=== PATIENT | female | born 1955 | race Two or more races ===

== ENCOUNTER 2022-05-24 22:16 | Emergency (ER) | payer OTHER ==
[~2022-05-24] VITALS: Ht 61 cm; Wt 63.5 kg
--- NOTE | 2022-05-24 23:30 | NUR ---
PT BIB FAMILY WITH C/O OF RIGHT LOWER LEG SWELLING + PITTING EDEMA, RT INGUINAL PAIN, RT ABDL PAIN. PT IS AAO X 4, MALAY SPEAKING, AMBULATORY, IN NO ACUTE DISTRESS. SEEN AND EXAMINED BY DR DIMAOND. PT ATTACHED TO MONITOR AND PULSE OX. WILL CONT TO MONITOR.
[2022-05-25] MEDS ORDERED: ONDANSETRON HCL/PF 4 MG/2 ML VIAL IVP ONE
[2022-05-25] MEDS ORDERED: IV NS 0.9% 500 ML BAG IV ONE
[2022-05-25] MEDS ORDERED: MORPHINE SULFATE INJ 2 MG/ML DISP.SYRIN IV ONE
[2022-05-25] MEDS ORDERED: MORPHINE SULFATE INJ 4 MG/ML DISP.SYRIN ONE (00:29)
[2022-05-25] MEDS ORDERED: ONDANSETRON HCL/PF 4 MG/2 ML VIAL ONE (00:29)
[2022-05-25 00:31] LABS: BASOPHILS % (AUTO) 0.4 % (0.0-2.0); EOSINOPHILS % (AUTO) 2.8 % (0.0-6.0); HEMATOCRIT 34 % (33-45); HEMOGLOBIN 11.3 g/dL (11.5-14.8); LYMPHOCYTES # (AUTO) 1.8 K/uL (0.8-4.8); LYMPHOCYTES % (AUTO) 16.5 % (20.0-44.0); MEAN CORPUSCULAR HGB CONC 34 g/dl (31.0-36.0); MEAN CORPUSCULAR VOLUME 87 fL (82-100); MONOCYTES # (AUTO) 0.8 K/uL (0.1-1.30); MONOCYTES % (AUTO) 6.9 % (2.0-12.0); NEUTROPHILS # (AUTO) 8.1 K/uL (1.8-8.9); NEUTROPHILS % (AUTO) 73.4 % (43.0-81.0); PLATELET COUNT (AUTO) 350 K/uL (150-450); RED BLOOD CELL COUNT(AUTO) 3.89 MIL/uL (4.0-5.2)
--- NOTE | 2022-05-25 00:36 | NUR ---
PT TAKEN TO CT
--- NOTE | 2022-05-25 00:44 | NUR ---
Note dustinone in EDM - 05/25/22 at 0045 by MICHEAL PT BIB FAMILY WITH C/O OF RIGHT LOWER LEG SWELLING + PITTING EDEMA, RT INGUINAL PAIN, RT ABDL PAIN. PT IS AAO X 4, GERMAN SPEAKING, AMBULATORY, IN NO ACUTE DISTRESS. SEEN AND EXAMINED BY DR DIAMOND. PT ATTACHED TO MONITOR AND PULSE OX. WILL CONT TO MONITOR.
[2022-05-25 00:46] LABS: CALCIUM, SERUM 9.1 mg/dL (8.5-10.1); CARBON DIOXIDE 24 mmol/L (21-32); CHLORIDE 100 mmol/L (98-107); CREATININE 1.1 mg/dL (0.6-1.3); GLUCOSE 115 mg/dL (74-106); POTASSIUM 3.6 mmol/L (3.5-5.1); SODIUM SERUM 136 mmol/L (136-145); UREA NITROGEN, BLOOD 21 mg/dL (7-18)
--- NOTE | 2022-05-25 00:46 | NUR ---
PT BACK TO BED 9
[2022-05-25 00:51] LABS: ALANINE AMINOTRANSFERASE 15 U/L (12-78); ALBUMIN 3.1 g/dL (3.4-5.0); ALKALINE PHOSPHATASE 58 U/L (46-116); ASPARTATE AMINOTRANSFERASE 14 U/L (15-37); BILIRUBIN,DIRECT 0.1 mg/dL (0.0-0.2); BILIRUBIN,TOTAL 0.2 mg/dL (0.2-1.0); LIPASE 157 U/L (73-393); TOTAL PROTEIN, SERUM 6.9 g/dL (6.4-8.2)
--- NOTE | 2022-05-25 00:58 | NUR ---
URINE COLLECTED, LAB NOTIFIED
[2022-05-25 01:15] LABS: BILIRUBIN,URINE NEGATIVE (NEGATIVE); COLOR,URINE YELLOW (YELLOW); LEUKOCYTE ESTERASE ,URINE NEGATIVE (NEGATIVE); NITRITE, URINE NEGATIVE (NEGATIVE); PROTEIN,URINE NEGATIVE (NEGATIVE); UGLUCOSE 3+ mg/dL (NEGATIVE); UROBILINOGEN,URINE 0.2 EU/dL (0.2)
[2022-05-25 01:19] LABS: BACTERIA,URINE Rare /HPF (None Seen); SQUAMOUS EPITHELIAL CELL,UR Moderate /HPF (None Seen); WBC,URINE 0-2 /HPF (0-3)
--- NOTE | 2022-05-25 02:06 | NUR ---
PATIENT DISCHARGED TO HOME IN STABLE CONDITION WITH DAUGHTER; PT AMBULATORY WITH STEADY GAIT. WRITTEN AND VERBAL AFTER CARE INSTRUCTIONS GIVEN. PATIENT VERBALIZES UNDERSTANDING OF INSTRUCTION. IV ACCESS REMOVED. NO SIGNS OF INFECTION OR BLEEDING.
[2022-05-25 02:09] VITALS: BP 128/66
== END 2022-05-25 02:05 | disposition home or self-care (01) ==
LOC: ER 22:19
DX: N20.0 Calculus of kidney (principal); R60.0 Localized edema; I10 Essential (primary) hypertension; E11.9 Type 2 diabetes mellitus without complications
CPT/HCPCS: 99285; 74176; 93971; 71045; 93005; 36415; 96374; 96361; 96375; 85025; 80048; 83690; 80076; 81001; 84484; 85730; 83880; J2270; J2405